=== PATIENT | male | born 1985 | race Caucasian/White ===

== ENCOUNTER 2023-09-14 17:17 | Emergency (ER) | payer SELFPAY ==
--- OUTSIDE RECORDS SUMMARY | 2023-09-14 17:19 | XMS REPORT | Continuity of Care Document ---
Author Name Unknown Address [address] [facility] [place] [address] [facility] thconnect Address [address] [facility] [address] [place] [address] Care Team Providers Care Hammer Repairer Name Role Phone KEFFER_A Attending Clinician Unavailable KEFFER_A Admitting Clinician Unavailable Payers Payer Name Policy Type Policy Number Effective Date Expirati on Date Source [facility] ([facility] [id number] 2016 00:00:00 2020 00:00:00 Encounters Start Date/Time End Date/Time Encounter Type Admission Type Attending Clinicians Care Facility Care Department Encounter ID Source 2020-11-18 03:14:00 2020-11-18 03:14:00 Outpatient [facility] [id number] [facility] 2020-10-14 06:31:00 2020-10-14 06:31:00 Outpatient [facility] [id number] [facility] 2020-09-09 01:02:00 2020-09-09 01:02:00 Outpatient [facility] [id number] [facility] 2020-09-07 02:52:00 2020-09-07 02:52:00 Outpatient [facility] [id number] [facility] 2020-08-28 02:45:00 2020-08-28 02:45:00 Outpatient [facility] [id number] [facility] 2020-08-20 01:02:00 2020-08-20 01:02:00 Outpatient [facility] [phone]- [phone] [place], [place] [address]ita Clinics
[2023-09-14 17:48] LABS: Specific Gravity 1.025 (1.005-1.030); Sqamous Epithelial <5 /HPF (None Seen); Urine Bacteria None Seen /HPF (<20); Urine Bilirubin NEGATIVE (Negative); Urine Blood Negative (Negative); Urine Clarity Clear (Clear); Urine Color Light-Yellow (Yellow); Urine Culture Reflex Order NOT NEEDED; Urine Glucose NEGATIVE (Negative); Urine Ketones NEGATIVE (Negative); Urine Micro Reflex YN NO BILL MICROSCOPIC; Urine Mucus Slight /HPF (None Seen); Urine Nitrite NEGATIVE (Negative); Urine Protein NEGATIVE (Negative); Urine RBC <5 /HPF (None Seen); Urine Urobilinogen Normal (Normal); Urine WBC <5 /HPF (<5)
[2023-09-14] MEDS ORDERED: KETOROLAC 30 MG/ML INJ ONE (17:50)
[2023-09-14] MEDS ORDERED: HYDROCODONE/APAP 5/325 MG TAB ONE (17:50)
--- NOTE | 2023-09-14 18:55 | RAD REPORT ---
EXAM DESCRIPTION: US - Scrotum Testicles - 09/14/2023 6:35 pm CLINICAL HISTORY: scrotal pain and swelling COMPARISON: No comparisons TECHNIQUE: Sonographic grayscale and color flow images of the scrotum were obtained. FINDINGS: The right testicle measures 5.5 x 2.7 x 3.8 cm. No intratesticular masses or evidence of t esticular torsion. The left testicle measures 4.8 x 2.6 x 3.6 cm. No intratesticular masses or evidence of testicular to rsion. Incidentally noted right epididymal head ovoid 0.9 x 0.9 x 0.7 cm anechoic cyst, may represent a sper matocele. Both epididymides are normal in size and appearance otherwise. No pathologic fluid collections. IMPRESSION: No testicular parenchymal abnormality. Incidentally noted right epididymal head cyst.
--- NOTE | 2023-09-14 18:57 | ER ---
Nurse's Notes [facility] Name: Anjum Mcelroy III Age: 38 yrs Sex: Male : 1985 Arrival Date: 09/14/2023 Time: 17:17 Bed 18 Private MD: Diagnosis: Epididymal Cyst Presentation: 09/13 17:23 Chief complaint: Patient states: right testicular pain and swelling since yesterday iw morning , getting worse today. Coronavirus screen: At this time, the client does not indicate any symptoms associated with coronavirus-19. Ebola Screen: Patient negative for fever greater than or equal to 101.5 degrees Fahrenheit, and additional compatible Ebola Virus Disease symptoms Patient denies exposure to infectious person. Patient denies travel to an Ebola-affected area in the 21 days before illness onset. No symptoms or risks identified at this time. Initial Sepsis Screen: Does the patient meet any 2 criteria? No. Patient's initial sepsis screen is negative. Does the patient have a suspected source of infection? No. Patient's initial sepsis screen is negative. Risk Assessment: Do you want to hurt yourself or someone else? Patient reports no desire to harm self or others. Onset of symptoms was September 13, 2023. 17:23 Method Of Arrival: Ambulatory iw 17:23 Acuity: DEWEY 3 iw Historical: - Allergies: 17:24 No Known Allergies; iw - Home Meds: 17:24 None [Active]; iw - PMHx: 17:24 None; iw - PSHx: 17:24 None; iw - Immunization history:: Adult Immunizations up to date. - Infectious Disease History:: Denies. - Social history:: Smoking status: Patient denies any tobacco usage or history of. Screenin:41 [facility] ED Fall Risk Assessment (Adult) History of falling in the last 3 months, mb9 including since admission No falls in past 3 months (0 pts) Confusion or Disorientation No (0 pts) Intoxicated or Sedated No (0 pts) Impaired Gait No (0 pts) Mobility Assist Device Used No (0 pt) Altered Elimination No (0 pt) Score/Fall Risk Level 0 - 2 = Low Risk Oriented to surroundings, Maintained a safe environment, Educated pt \T\ family on fall prevention, incl call for assistance when getting out of bed. Abuse screen: Denies threats or abuse. Nutritional screening: No deficits noted. Tuberculosis screening: No symptoms or risk factors identified. Assessment: 17:40 General: Appears in no apparent distress. Behavior is calm, cooperative. Pain: mb9 Complains of pain in scrotum Pain radiates to pelvis Pain currently is 7 out of 10 on a pain scale. Quality of pain is described as throbbing. Neuro: Khan Agitation-Sedation Scale (RASS): 0 - Alert and Calm Level of Consciousness is awake, alert, obeys commands, Oriented to person, place, time, situation, Appropriate for age. Cardiovascular: Patient's skin is warm and dry. Respiratory: Airway is patent Respiratory effort is even, unlabored, Respiratory pattern is regular, symmetrical, Breath sounds are clear bilaterally. GI: No signs and/or symptoms were reported involving the gastrointestinal system. : Denies burning with urination. EENT: No signs and/or symptoms were reported regarding the EENT system. Derm: Skin is pink, warm \T\ dry. Musculoskeletal: Swelling present in testicles. 18:58 Reassessment: No changes from previously documented assessment. Patient and/or family mb9 updated on plan of care and expected duration. Pain level reassessed. Patient is alert, oriented x 3, equal unlabored respirations, skin warm/dry/pink. Vital Signs: 17:24 BP 134 / 85; Pulse 77; Resp 16; Pulse Ox 100% ; Weight 86.18 kg; Height 5 ft. 11 in. ; iw Pain 2/10; 18:58 BP 128 / 78; Pulse 72; Resp 18; Pulse Ox 100% on R/A; mb9 17:24 Body Mass Index 26.50 (86.18 kg, 180.34 cm) iw 17:24 Pain Scale: Adult iw ED Course: 17:19 Patient arrived in ED. im 17:19 Genaro Tomlinson MD is Attending Physician. ec2 17:24 Triage completed. iw 17:25 Arm band placed on. iw 17:28 Kitty Bhakta RN is Primary Nurse. mb9 17:41 Placed in gown. Bed in low position. Call light in reach. Side rails up X 1. Provided mb9 Education on: press call light if needing anything. Client placed on continuous cardiac and pulse oximetry monitoring. NIBP monitoring applied. 17:42 No provider procedures requiring assistance completed. Patient did not have IV access mb9 during this emergency room visit. 18:16 Patient moved back from ultrasound. mb9 18:37 Scrotum Testicles US In Process Unspecified. EDMS 18:57 Ryan Condon MD is Referral Physician. ec2 Administered Medications: 17:54 Drug: HYDROcodone-acetaminophen PO 5 mg-325 mg 2 tabs PO once Route: PO; mb9 18:24 Follow up: Response: No adverse reaction mb9 17:55 Drug: Ketorolac IM 30 mg IM once Route: IM; Site: left deltoid; mb9 18:24 Follow up: Response: No adverse reaction mb9 Medication: 17:42 VIS not applicable for this client. mb9 Outcome: 18:57 Discharge ordered by . ec2 18:58 Discharged to home ambulatory, with family, mb9 18:58 Condition: stable 18:58 Discharge instructions given to patient, Instructed on discharge instructions, follow up and referral plans. Demonstrated understanding of instructions, follow-up care, 19:03 Patient left the ED. mb9 Signatures: Dispatcher [employer] Milvia Ward, Kitty Munoz RN, RN RN mb9 Aure Camacho Edwin, MD MD ec2
--- NOTE | 2023-09-14 18:57 | EDPHYS ---
Physician Documentation [facility] Name: Anjum Mcelroy III Age: 38 yrs Sex: Male : 1985 Arrival Date: 09/14/2023 Time: 17:17 Bed 18 Private MD: ED Physician Genaro Tomlinson HPI: 09/13 17:34 This 38 yrs old Male presents to ER via Ambulatory with complaints of ec2 Testicular Swelling, Testicular Pain. 17:34 Patient complaining of right testicular swelling and pain. States onset of symptoms ec2 yesterday a.m. Patient reports pain with standing. Reports no fevers or chills, no penile discharge, no erythema, no scrotal erythema as well. Patient reports no previous history of abdominal surgeries or surgeries. Denies any previous history of kidney stones. Denies any blood in the urine.. Historical: - Allergies: 17:24 No Known Allergies; iw - Home Meds: 17:24 None [Active]; iw - PMHx: 17:24 None; iw - PSHx: 17:24 None; iw - Immunization history:: Adult Immunizations up to date. - Infectious Disease History:: Denies. - Social history:: Smoking status: Patient denies any tobacco usage or history of. ROS: 17:34 Constitutional: as per hpi ec2 Exam: 17:34 Constitutional: GEN: NAD Head: atraumatic Eyes: EOMI Ears: External ears are ec2 normal. CV: regular rate LUNGS: no respiratory distress ABD: non-distended. : Right testicle with epididymal swelling, tenderness to palpation, intact cremasteric reflex bilaterally. No scrotal edema, no scrotal erythema or crepitus appreciated. No discoloration noted. SKIN: no evidence of rashes MSK: no evidence of trauma NEURO: moves all extremities equally Vital Signs: 17:24 BP 134 / 85; Pulse 77; Resp 16; Pulse Ox 100% ; Weight 86.18 kg; Height 5 ft. 11 in. ; iw Pain 2/10; 18:58 BP 128 / 78; Pulse 72; Resp 18; Pulse Ox 100% on R/A; mb9 17:24 Body Mass Index 26.50 (86.18 kg, 180.34 cm) iw 17:24 Pain Scale: Adult iw MDM: 17:20 Patient medically screened. ec2 17:34 Data reviewed: vital signs. ED course: Patient arrives today for evaluation of right ec2 scrotal pain. Examination remarkable for findings as above. Will obtain urine studies, scrotal ultrasound. Evaluating for epididymitis, torsion, UTI.. 17:50 ED course: Urine is noninfectious appearing.. ec2 18:56 ED course: Ultrasound shows epididymal cyst. Will instruct the patient on jock support, ec2 give patient pain medications as needed. Return precautions given. Will also have patient follow-up with urology.. 05 17:24 Order name: UAM; Complete Time: 17:50 ec2 05 17:24 Order name: Scrotum Testicles US; Complete Time: 18:56 ec2 Administered Medications: 17:54 Drug: HYDROcodone-acetaminophen PO 5 mg-325 mg 2 tabs PO once Route: PO; mb9 18:24 Follow up: Response: No adverse reaction mb9 17:55 Drug: Ketorolac IM 30 mg IM once Route: IM; Site: left deltoid; mb9 18:24 Follow up: Response: No adverse reaction mb9 Disposition Summary: 09/14/23 18:57 Discharge Ordered Notes: Location: Home ec2 Condition: Stable ec2 Diagnosis - Epididymal Cyst ec2 Followup: ec2 - With: Ryan Condon MD - When: - Reason: Recheck today's complaints Discharge Instructions: - Discharge Summary Sheet ec2 - Epididymitis ec2 Forms: - Work release form mb9 - Medication Reconciliation Form ec2 - Antibiotic Education ec2 - Prescription Opioid Use ec2 - Patient Portal Instructions ec2 - Leadership Thank You Letter ec2 Prescriptions: - acetaminophen-codeine 300-15 mg Oral tablet - take 1 tablet ORAL route 4 times per day as needed for pain; 15 tablet; ec2 Refills: 0, Product Selection Permitted Signatures: Dispatcher [employer] Milvia Ward RN RN iw Breneman, Mary Beth, RN RN mb9 Genaro Tomlinson MD MD ec2
[2023-09-14 19:20] VITALS: BP 128/78; O2SAT 100
== END 2023-09-14 19:03 | disposition home or self-care (01) ==
LOC: ER 17:17
DX: N50.3 Cyst of epididymis (principal)
CPT/HCPCS: 76870; 81001; 96372; 99284

== ENCOUNTER 2023-10-25 18:07 | Emergency (ER) | payer SELFPAY ==
--- OUTSIDE RECORDS SUMMARY | 2023-10-25 18:10 | XMS REPORT | Continuity of Care Document ---
Author Name Unknown Address [address] [place] [address] [place] [address] [facility] thconnect Address [address] [place] [address] Care Team Providers Care Appeals Rn Name Role Phone KEFFER_A Attending Clinician Unavailable KEFFER_A Admitting Clinician Unavailable Payers Payer Name Policy Type Policy Number Effective Date Expirati on Date Source [facility] ([facility]) [id number] 2016 00:00:00 2020 00:00:00 Encounters Start Date/Time End Date/Time Encounter Type Admission Type Attending Clinicians Care Facility Care Department Encounter ID Source 2020-11-18 03:14:00 2020-11-18 03:14:00 Outpatient [facility]FFER[facility]A [facility] [id number] [facility] 2020-10-14 06:31:00 2020-10-14 06:31:00 Outpatient [facility] [id number] [facility] 2020-09-09 01:02:00 2020-09-09 01:02:00 Outpatient [facility] [id number] [facility] 2020-09-07 02:52:00 2020-09-07 02:52:00 Outpatient [facility] [id number] [facility] 2020-08-28 02:45:00 2020-08-28 02:45:00 Outpatient [facility] [id number] [facility] 2020-08-20 01:02:00 2020-08-20 01:02:00 Outpatient [facility]A [facility] [id number] [place], [place] [address]ita Clinics
[2023-10-25] MEDS ORDERED: CYCLOBENZAPRINE 10 MG TAB ONE (18:44)
[2023-10-25] MEDS ORDERED: dexAMETHasone 10 MG/ML VIAL ONE (18:44)
[2023-10-25] MEDS ORDERED: KETOROLAC 30 MG/ML INJ ONE (18:44)
--- NOTE | 2023-10-25 19:27 | RAD REPORT ---
EXAM DESCRIPTION: CT - Spine Lumbar Wo Con - 10/25/2023 7:15 pm CLINICAL HISTORY: PAIN COMPARISON: No comparisons TECHNIQUE: Axial noncontrast CT imaging of the lumbar spine was performed with coronal and sagittal re-formatted images. All CT scans are performed using dose optimization technique as appropriate and may include automated exposure control or mA/KV adjustment according to patient size. FINDINGS: No acute lumbar spine fracture seen. No aggressive marrow pattern or malalignment. Paraspinal tissues are normal in thickness. No paraspinal abscess or hematoma seen. Intervertebral disc disease assessment is inherently limited by CT. Within these limitations, no high -grade canal stenosis suspected. Disc bulges at L4-5 and L5-S1 including a left central disc extrusi on at L5 without significant central canal stenosis. Mild bilateral neural foraminal narrowing of the lower lumbar levels. IMPRESSION: No acute osseous abnormality or subluxation. Mild discogenic changes at L4-5 and L5-S1. Mild bilateral neural foraminal narrowing at those levels. Please Consider MRI follow-up for assessment of disc disease if clinically desired.
[2023-10-25] MEDS ORDERED: MORPHINE 4 MG/ML SYR ONE (20:34)
--- NOTE | 2023-10-25 21:20 | EDPHYS ---
Physician Documentation [facility] Name: Anjum Mcelroy III Age: 38 yrs Sex: Male : 1985 Arrival Date: 10/25/2023 Time: 18:07 Bed 16 Private MD: ED Physician Genaro Tomlinson HPI: 10/24 18:46 This 38 yrs old Male presents to ER via Ambulatory with complaints of Back Pain, rt Weakness. 18:46 Patient presents to the ED with an acute back pain starting today. The patient said rt previous episodes of acute back pain with bending, lifting heavy objects. Patient states that he lifted a heavy object, causing his back to have worsening pain. Patient states that the pain today was worse than it has ever been. Patient states that his pain did bring him down to his knees, but, he denies any weakness currently. Patient states that when he is still, has no significant pain but when he moves the pain is significantly worse. He denies other acute complaints at this time, symptoms are moderate in severity, aching nature, nonradiating, no other aggravating or alleviating factors.. Historical: - Allergies: 18:30 No Known Allergies; hb - Home Meds: 18:30 None [Active]; hb - PMHx: 18:30 Hiatal Hernia; hb - PSHx: 18:30 None; hb - Immunization history:: Adult Immunizations up to date. - Infectious Disease History:: Denies. - Social history:: Smoking status: Reported history of juuling and/or vaping. - Family history:: not pertinent. ROS: 18:46 Constitutional: Negative for fever, chills, and weight loss, Cardiovascular: Negative rt for chest pain, palpitations, and edema, Respiratory: Negative for shortness of breath, cough, wheezing, and pleuritic chest pain, Abdomen/GI: Negative for abdominal pain, nausea, vomiting, diarrhea, and constipation, MS/Extremity: Negative for injury and deformity, Skin: Negative for injury, rash, and discoloration, Neuro: Negative for headache, weakness, numbness, tingling, and seizure, 18:46 Back: Positive for pain with movement, Negative for injury or acute deformity, pain at rest, Exam: 18:46 Constitutional: This is a well developed, well nourished patient who is awake, alert, rt and in no acute distress. Head/Face: Normocephalic, atraumatic. Chest/axilla: Normal chest wall appearance and motion. Nontender with no deformity. No lesions are appreciated. Cardiovascular: Regular rate and rhythm with a normal S1 and S2. No gallops, murmurs, or rubs. Normal PMI, no JVD. No pulse deficits. Respiratory: Lungs have equal breath sounds bilaterally, clear to auscultation and percussion. No rales, rhonchi or wheezes noted. No increased work of breathing, no retractions or nasal flaring. Abdomen/GI: Soft, non-tender, with normal bowel sounds. No distension or tympany. No guarding or rebound. No evidence of tenderness throughout. Back: No spinal tenderness. No costovertebral tenderness. Full range of motion. Skin: Warm, dry with normal turgor. Normal color with no rashes, no lesions, and no evidence of cellulitis. MS/ Extremity: Pulses equal, no cyanosis. Neurovascular intact. Full, normal range of motion. Neuro: Awake and alert, GCS 15, oriented to person, place, time, and situation. Cranial nerves II-XII grossly intact. Motor strength 5/5 in all extremities. Sensory grossly intact. Cerebellar exam normal. Normal gait. Vital Signs: 18:27 BP 138 / 93; Pulse 84; Resp 16; Temp 97.8(TE); Pulse Ox 98% on R/A; Weight 90.72 kg; hb Height 5 ft. 11 in. ; Pain 9/10; 21:31 BP 141 / 68; Pulse 76; Resp 18; Pulse Ox 97% ; as6 18:27 Body Mass Index 27.89 (90.72 kg, 180.34 cm) hb 18:27 Pain Scale: Adult hb MDM: 18:30 Patient medically screened. rt 19:08 Data reviewed: vital signs. ED course: Patient signed out to me by previous physician, ec2 in brief patient arrives today for evaluation of low back pain without red flag symptoms. Plan is to follow-up CT scan of the L-spine and reassess the patient clinically.. 10/24 18:39 Order name: CT Lumbar Spine Wo Con; Complete Time: 19:34 rt Administered Medications: 18:50 Drug: Cyclobenzaprine PO 10 mg PO once Route: PO; nj1 21:31 Follow up: Response: No adverse reaction as6 18:59 Drug: Ketorolac IVP 15 mg IVP once Route: IVP; Site: right antecubital; nj1 21:31 Follow up: Response: No adverse reaction as6 19:00 Drug: Decadron - Dexamethasone IVP 10 mg IVP once Route: IVP; Site: right antecubital; nj1 21:32 Follow up: Response: No adverse reaction as6 20:40 Drug: morphine IVP or IV 4 mg IVP once over 4 mins Route: IVP; Infused Over: 4 mins; nj1 Site: right antecubital; 21:32 Follow up: Response: No adverse reaction as6 Disposition Summary: 10/25/23 21:19 Discharge Ordered Notes: Location: Home ec2 Condition: Stable ec2 Diagnosis - Low back pain ec2 Followup: ec2 - With: Private Physician - When: - Reason: Re-evaluation by your physician Discharge Instructions: - Discharge Summary Sheet ec2 - Acute Back Pain, Adult ec2 Forms: - Medication Reconciliation Form ec2 - Antibiotic Education ec2 - Prescription Opioid Use ec2 - Patient Portal Instructions ec2 - Leadership Thank You Letter ec2 Prescriptions: - acetaminophen-codeine 300-15 mg Oral tablet - take 1 tablet ORAL route every 4 to 6 hours as needed for pain; 15 tablet; ec2 Refills: 0, Product Selection Permitted Signatures: Dispatcher [employer] Karol Lopez RN RN Zeus Tyson MD MD rt Tea Montoya RN RN nj1 Genaro Tomlinson MD MD ec2 Loco Law RN as6 Corrections: (The following items were deleted from the chart) 18:39 18:39 Spine Lumbar Wo Con+CT.RAD.BRZ ordered. EDMS ED
--- NOTE | 2023-10-25 21:20 | ER ---
Nurse's Notes [facility] Name: Anjum Mcelroy III Age: 38 yrs Sex: Male : 1985 Arrival Date: 10/25/2023 Time: 18:07 Bed 16 Private MD: Diagnosis: Low back pain Presentation: 10/24 18:27 Chief complaint: Worsening low back pain x 5 days. Coronavirus screen: At this time, hb the client does not indicate any symptoms associated with coronavirus-19. Ebola Screen: No symptoms or risks identified at this time. Initial Sepsis Screen: Does the patient meet any 2 criteria? No. Patient's initial sepsis screen is negative. Does the patient have a suspected source of infection? No. Patient's initial sepsis screen is negative. Risk Assessment: Do you want to hurt yourself or someone else? Patient reports no desire to harm self or others. Onset of symptoms was October 21, 2023. 18:27 Method Of Arrival: Ambulatory hb 18:27 Acuity: DEWYE 3 hb Triage Assessment: 18:30 General: Appears in no apparent distress. Behavior is calm, cooperative. Pain: Pain hb currently is 4 out of 10 on a pain scale. at worst was 9 out of 10 on a pain scale. Neuro: Level of Consciousness is awake, alert, obeys commands, Oriented to person, place, time, situation. Cardiovascular: Patient's skin is warm and dry. Respiratory: Respiratory effort is even, unlabored, Respiratory pattern is regular, symmetrical. Musculoskeletal: Reports low back pain. Historical: - Allergies: 18:30 No Known Allergies; hb - Home Meds: 18:30 None [Active]; hb - PMHx: 18:30 Hiatal Hernia; hb - PSHx: 18:30 None; hb - Immunization history:: Adult Immunizations up to date. - Infectious Disease History:: Denies. - Social history:: Smoking status: Reported history of juuling and/or vaping. - Family history:: not pertinent. Screenin:52 [facility] ED Fall Risk Assessment (Adult) History of falling in the last 3 months, nj1 including since admission No falls in past 3 months (0 pts) Confusion or Disorientation No (0 pts) Intoxicated or Sedated No (0 pts) Impaired Gait No (0 pts) Mobility Assist Device Used No (0 pt) Altered Elimination No (0 pt) Score/Fall Risk Level 0 - 2 = Low Risk Oriented to surroundings, Maintained a safe environment, Hourly rounding (assess needs \T\ fall precautionary measures) done. Abuse screen: Denies threats or abuse. Denies injuries from another. Nutritional screening: No deficits noted. Tuberculosis screening: No symptoms or risk factors identified. Assessment: 18:40 General: Appears in no apparent distress. comfortable, Behavior is calm, cooperative, nj1 appropriate for age. 18:40 Pain: Complains of pain in back Pain at worst was 8 out of 10 on a pain scale. Neuro: nj1 Level of Consciousness is awake, alert, obeys commands, Oriented to person, place, time, situation. Cardiovascular: Patient's skin is warm and dry. Respiratory: Airway is patent Respiratory effort is even, unlabored. Musculoskeletal: Reports pain in back none at rest. 19:42 Reassessment: Patient appears in no apparent distress at this time. Patient is alert, nj1 oriented x 3, equal unlabored respirations, skin warm/dry/pink. 20:40 Reassessment: Patient appears in no apparent distress at this time. Patient and/or nj1 family updated on plan of care and expected duration. Pain level reassessed. Patient is alert, oriented x 3, equal unlabored respirations, skin warm/dry/pink. Vital Signs: 18:27 BP 138 / 93; Pulse 84; Resp 16; Temp 97.8(TE); Pulse Ox 98% on R/A; Weight 90.72 kg; hb Height 5 ft. 11 in. ; Pain 9/10; 21:31 BP 141 / 68; Pulse 76; Resp 18; Pulse Ox 97% ; as6 18:27 Body Mass Index 27.89 (90.72 kg, 180.34 cm) hb 18:27 Pain Scale: Adult hb ED Course: 18:10 Patient arrived in ED. ae5 18:27 Zeus Tyson MD is Attending Physician. rt 18:30 Triage completed. hb 18:30 Arm band placed on. hb 18:34 Tea Montoya, JEROME is Primary Nurse. nj1 18:52 Patient has correct armband on for positive identification. Bed in low position. Call nj1 light in reach. Side rails up X 1. Provided Education on: call light, fall precautions. 18:58 Inserted saline lock: 20 gauge in right antecubital area, using aseptic technique. nj1 19:00 Attending Physician role handed off by Zeus Tyson MD ec2 19:00 Genaro Tomlinson MD is Attending Physician. ec2 19:17 CT Lumbar Spine Wo Con In Process Unspecified. EDMS 21:03 Report given to Loco CANO. nj1 21:30 No provider procedures requiring assistance completed. IV discontinued, intact, as6 bleeding controlled, No redness/swelling at site. Pressure dressing applied. Administered Medications: 18:50 Drug: Cyclobenzaprine PO 10 mg PO once Route: PO; nj1 21:31 Follow up: Response: No adverse reaction as6 18:59 Drug: Ketorolac IVP 15 mg IVP once Route: IVP; Site: right antecubital; nj1 21:31 Follow up: Response: No adverse reaction as6 19:00 Drug: Decadron - Dexamethasone IVP 10 mg IVP once Route: IVP; Site: right antecubital; nj1 21:32 Follow up: Response: No adverse reaction as6 20:40 Drug: morphine IVP or IV 4 mg IVP once over 4 mins Route: IVP; Infused Over: 4 mins; nj1 Site: right antecubital; 21:32 Follow up: Response: No adverse reaction as6 Medication: 21:30 VIS not applicable for this client. as6 Outcome: 21:19 Discharge ordered by . ec2 21:30 Discharged to home ambulatory, with family, as6 21:30 Condition: stable 21:30 Discharge instructions given to patient, family, Instructed on discharge instructions, follow up and referral plans. medication usage, Demonstrated understanding of instructions, follow-up care, medications, Prescriptions given X 1, 21:31 Patient left the ED. as6 Signatures: Dispatcher [employer] EDMI Karol Jimenes RN RN Loco Law RN RN as6 Zeus Tyson MD MD rt Tea Montoya RN RN nj1 Genaro Tomlinson MD MD 2 Radhika Peck ae5
[2023-10-25 21:48] VITALS: BP 141/68; TEMP 97.8; O2SAT 97
== END 2023-10-25 21:31 | disposition home or self-care (01) ==
LOC: ER 18:07
DX: M54.50 Low back pain, unspecified (principal)
CPT/HCPCS: 72131; 96374; 96375; 99284; J1100